=== PATIENT | female | born 1980 | race Caucasian/White ===

== ENCOUNTER 2022-11-05 08:21 | Outpatient (CLI) | payer BC, SELFPAY | END 2022-11-05 08:22 | disposition home or self-care (01) | PROVIDERS: PCP Nurse Practitioner Family; Visit Provider Nurse Practitioner Family | DX: Z00.00 Encounter for general adult medical examination without abnormal findings (principal); E78.5 Hyperlipidemia, unspecified; E66.9 Obesity, unspecified; Z13.1 Encounter for screening for diabetes mellitus; Z13.0 Encounter for screening for diseases of the blood and blood-forming organs and certain disorders involving the immune mechanism | CPT/HCPCS: 80061; 82947; 85025 ==

== ENCOUNTER 2023-06-04 18:07 | Outpatient (CLI) | payer BC, SELFPAY ==
--- NOTE | 2023-06-04 18:20 | MM_ITS ---
Patient: KARUNA BARROW Facility:?[facility] Patient ID:?[id number] Site Patient ID:?[id number]. Site :?[id number] Study:?XRay-Breast Bilateral 3D screening mammogram w/cad-06/04/2023 6:31:23 PM Ordering Physician:Luisa Final Report: BILATERAL SCREENING MAMMOGRAM WITH COMPUTER-AIDED DETECTION AND TOMOSYNTHESIS TECHNIQUE: CC and MLO views were obtained. These mammographic images have been obtained using full-field digital technique. These mammographic images were interpreted with the benefit of computer-aided detection. Breast tomosynthesis was used in this interpretation. COMPARISON FILM: None. This is a baseline study. FINDINGS: There are scattered areas of fibroglandular density. IMPRESSION: There is no radiographic evidence for malignancy. ASSESSMENT: BI-RADS Category 2: Benign RECOMMENDATION: Routine screening mammogram in 1 year. A lay language report of this examination will be provided to the patient. MARIO MURDOCK M.D. Diagnostic Radiologist [email or web address] HAYDEE/david D& Transcribed: 4:[address]/Dictated by: Mario Murdock MD @ 06/05/2023 11:28:00 AM Signed by:?Mario Murdock MD @06/06/2023 5:30:05 AM (Electronic Signature)
== END 2023-06-04 18:08 | disposition home or self-care (01) ==
LOC: MAMMO 18:07
PROVIDERS: PCP Nurse Practitioner Family; Visit Provider Nurse Practitioner Family
DX: Z12.31 Encounter for screening mammogram for malignant neoplasm of breast (principal)
CPT/HCPCS: 77063; 77067

== ENCOUNTER 2023-11-08 14:06 | Outpatient (CLI) | payer BC, SELFPAY | END 2023-11-08 14:07 | disposition home or self-care (01) | LOC: KYNREF 14:07 | PROVIDERS: PCP Nurse Practitioner Family; Visit Provider Nurse Practitioner Family | DX: R82.90 Unspecified abnormal findings in urine (principal); R30.0 Dysuria | CPT/HCPCS: 81001; 87086 ==

== ENCOUNTER 2023-11-18 08:14 | Outpatient (CLI) | payer BC, SELFPAY | END 2023-11-18 08:15 | disposition home or self-care (01) | PROVIDERS: PCP Nurse Practitioner Family; Visit Provider Nurse Practitioner Family | DX: E78.5 Hyperlipidemia, unspecified (principal) | CPT/HCPCS: 80053; 80061 ==

== ENCOUNTER 2024-11-26 08:41 | Outpatient (CLI) | payer BC, SELFPAY | END 2024-11-26 08:42 | disposition home or self-care (01) | PROVIDERS: PCP Nurse Practitioner Family; Visit Provider Nurse Practitioner Family | DX: R53.83 Other fatigue (principal); E78.5 Hyperlipidemia, unspecified; Z00.00 Encounter for general adult medical examination without abnormal findings; Z13.228 Encounter for screening for other metabolic disorders | CPT/HCPCS: 80053; 80061; 82306; 82607; 82728; 83540; 83550; 84443; 85025 ==